=== PATIENT | female | born 1965 | race Caucasian/White ===

== ENCOUNTER 2019-01-30 16:02 | Emergency (ER) | payer OTHER ==
[~2019-01-30] VITALS: Ht 172.7 cm; Wt 115.0 kg
[2019-01-30] MEDS ORDERED: METH2.5T48 PO (16:36)
[2019-01-30] MEDS ORDERED: LORA-674 PO (16:36)
[2019-01-30] MEDS ORDERED: PRED20TA PO (16:36)
[2019-01-30] MEDS ORDERED: MULTCAP PO (16:36)
[2019-01-30] MEDS ORDERED: FOLI1TAB11 PO (16:36)
[2019-01-30] MEDS ORDERED: LISI-542 PO (16:36)
[2019-01-30] MEDS ORDERED: PROT20TA11 PO (16:36)
[2019-01-30] MEDS ORDERED: ACTE80IN IV (16:36)
[2019-01-30 17:08] LABS: BASO % 0.2 % (0.0-1.0); HEMATOCRIT 45.8 % (36.0-47.0); HEMOGLOBIN 15.6 g/dl (12.0-15.5); LYMPH # 1.5 10^3/uL (1.5-5.0); LYMPH % 12.5 % (24.0-44.0); MEAN CORPUSCULAR HEMOGLOBIN 32.6 pg (27.0-33.0); MEAN CORPUSCULAR HGB CONC 34.1 g/dl (32.0-36.5); MEAN CORPUSCULAR VOLUME 95.6 fl (80.0-96.0); MONO # 0.5 10^3/uL (0.0-0.8); MONO % 3.9 % (0.0-5.0); NEUTROPHILS # 9.7 10^3/uL (1.5-8.5); NEUTROPHILS % 83.1 % (36.0-66.0); PLATELET COUNT, AUTOMATED 301 10^3/uL (150-450); RED BLOOD COUNT 4.79 10^6/uL (4.00-5.40); WHITE BLOOD COUNT 11.7 10^3/uL (4.0-10.0)
[2019-01-30 17:41] LABS: ALBUMIN 4.6 GM/DL (3.2-5.2); ALT/SGPT 34 U/L (12-78); BILIRUBIN,DIRECT 0.3 MG/DL (0.0-0.2); BILIRUBIN,TOTAL 1.6 MG/DL (0.2-1.0); BLOOD UREA NITROGEN 17 MG/DL (7-18); CALCIUM LEVEL 10.3 MG/DL (8.5-10.1); CARBON DIOXIDE LEVEL 26 MEQ/L (21-32); CHLORIDE LEVEL 108 MEQ/L (98-107); CK-MB VALUE MASS 1.4 NG/ML (<3.6); CPK CREATINE PHOSPHOKINASE 53 U/L (26-192); CREATININE FOR GFR 0.87 MG/DL (0.55-1.30); GLOMERULAR FILTRATION RATE > 60.0 (>51); GLUCOSE, FASTING 93 MG/DL (70-100); MB/CK RELATIVE INDEX 2.64 (< OR =4); POTASSIUM SERUM 4.2 MEQ/L (3.5-5.1); SODIUM LEVEL 142 MEQ/L (136-145); TOTAL PROTEIN 8.2 GM/DL (6.4-8.2); TROPONIN I < 0.02 NG/ML (< 0.10)
[2019-01-30] MEDS ORDERED: ISOVUE-370 76% 100ML VIAL (Q9967) As Ordered ONE (17:51)
[2019-01-30 18:55] LABS: MAGNESIUM LEVEL 2.2 MG/DL (1.8-2.4)
--- NOTE | 2019-01-30 19:08 | REPVR ---
PROCEDURE INFORMATION: Exam: CT Angiography Chest Without And With Contrast Exam date and time: 01/30/2019 5:10 PM Clinical history: 53 years old, female; Chest pain; Type not specified; Additional info: Chest pain, palpitations, recent travel TECHNIQUE: Imaging protocol: Computed tomographic angiography of the chest without and with intravenous contrast. 3D rendering: MIP reconstructed images were created and reviewed. Radiation optimization: All CT scans at this facility use at least one of these dose optimization techniques: automated exposure control; mA and/or kV adjustment per patient size (includes targeted exams where dose is matched to clinical indication); or iterative reconstruction. Contrast material: ISOVUE 370; Contrast volume: 100 ml; Contrast route: IV; COMPARISON: CR PORTABLE CHEST X-RAY 01/30/2019 4:24 PM FINDINGS: Pulmonary arteries: No filling defects in the pulmonary arteries to suggest pulmonary emboli. Aorta: Unremarkable. No aortic aneurysm. No aortic dissection. Thyroid: 1.6 cm hypodense nodule in the right thyroid lobe. Lungs: 4 mm nodule in the right middle lobe. Pleural space: Unremarkable. No pneumothorax. No pleural effusion. Heart: Unremarkable. No cardiomegaly. No pericardial effusion. Mediastinum: Small gastroesophageal sliding type hiatal hernia. Gallbladder and bile ducts: Cholecystectomy clips in the right upper quadrant. Lymph nodes: Unremarkable. No enlarged lymph nodes. Bones/joints: Unremarkable. No acute fracture. Soft tissues: Unremarkable. IMPRESSION: 1. Small gastroesophageal sliding type hiatal hernia. 2. 4 mm nodule in the right middle lobe. 3. No filling defects in the pulmonary arteries to suggest pulmonary emboli. COMMENT: 1. As per Fleischner Society guidelines for follow-up and management of pulmonary nodules: For patients at low risk (minimal or absent history of smoking and of other known risk factors), no follow-up needed. For patient at high risk (history of smoking or of other known risk factors), recommend follow-up chest CT at 12 months; if unchanged, no further follow-up needed. 2. In patients aged 35 years and older with an incidental thyroid nodule equal to or greater than 1.[address], MRI or extrathyroidal US, further evaluation with dedicated thyroid US is recommended for patients with normal life expectancy and without comorbidities. For smaller nodules without suspicious features, no further evaluation or follow up is recommended. Electronically signed by: Sanford Pino On 01/30/2019 19:07:46 PM
[2019-01-30] MEDS ORDERED: NS 1,000 ML IV ONE (19:15)
[2019-01-30 20:00] LABS: CK-MB VALUE MASS 1.4 NG/ML (<3.6); CPK CREATINE PHOSPHOKINASE 46 U/L (26-192); MB/CK RELATIVE INDEX 3.04 (< OR =4); TROPONIN I < 0.02 NG/ML (< 0.10)
[2019-01-30 20:15] VITALS: BP 131/66
--- NOTE | 2019-01-30 20:32 | REP ---
HISTORY: Chest pain. COMPARISON: None. The technique utilized in obtaining the radiograph has magnified the cardiac silhouette and accentuated the interstitial markings. The superior mediastinal structures are midline. The cardiac silhouette is unremarkable in size, shape, and position. The diaphragmatic surfaces of the lungs are regular, and the costophrenic angles are clear. The pulmonary laguna are clear. The imaged osseous structures are intact. IMPRESSION: There is no acute cardiopulmonary disease. Electronically Signed by Blaine Quezada DO 02/02/2019 02:52 P
--- NOTE | 2019-01-30 21:33 | ECGEPIP ---
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
--- NOTE | 2019-01-31 14:03 | ECGEPIP ---
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
== END 2019-01-30 20:33 | disposition home or self-care (01) ==
LOC: M ED 16:02
DX: R00.2 Palpitations (principal); R91.1 Solitary pulmonary nodule; E83.52 Hypercalcemia; I10 Essential (primary) hypertension; J45.909 Unspecified asthma, uncomplicated; M06.9 Rheumatoid arthritis, unspecified; Z79.899 Other long term (current) drug therapy; Z88.2 Allergy status to sulfonamides; Z88.8 Allergy status to other drugs, medicaments and biological substances
CPT/HCPCS: 71045; 71275; 80048; 80076; 81001; 82550; 82553; 83735; 84443; 84484; 85025; 87486; 87581; 87633; 87798; 93005; 93041; 94760; 99285; Q9967